=== PATIENT | male | born 1980 | race Caucasian/White ===

== ENCOUNTER 2023-12-24 04:30 | Emergency (ER) | payer OTHER ==
[~2023-12-24] VITALS: Ht 170.2 cm; Wt 109.1 kg
[2023-12-24] MEDS: KETOROLAC 30 MG/ML 1ML VIAL IV ONE (08:30)
[2023-12-24] MEDS: ONDANSETRON 4MG 2ML VIAL IV ONE (08:35)
[2023-12-24] MEDS: METHOCARBAMOL 1,000 MG/10 ML VIAL IV ONE (08:37)
[2023-12-24] MEDS ORDERED: BUSP10TA PO (08:40)
[2023-12-24] MEDS ORDERED: FLUO-290 PO (08:40)
[2023-12-24] MEDS ORDERED: ASPI81CH33 PO (08:40)
[2023-12-24] MEDS ORDERED: PANT40TA29 PO (08:40)
[2023-12-24 09:35] VITALS: BP 144/91; TEMP 98.2; O2SAT 97
== END 2023-12-24 09:45 | disposition home or self-care (01) ==
LOC: M ED 04:30
DX: M54.50 Low back pain, unspecified (principal); M19.90 Unspecified osteoarthritis, unspecified site; M91.10 Juvenile osteochondrosis of head of femur [Legg-Calve-Perthes], unspecified leg; Z98.61 Coronary angioplasty status; F17.200 Nicotine dependence, unspecified, uncomplicated; Z88.1 Allergy status to other antibiotic agents
CPT/HCPCS: 72131; 96374; 96375; 99284; J1885; J2405; J2800